=== PATIENT | male | born 1960 | race Caucasian/White ===

== ENCOUNTER 2018-03-23 14:05 | Inpatient (IN) ==
[2018-03-23] MEDS ORDERED: Naloxone 0.4 MG/ML INJ IVP PRN (17:48)
[2018-03-23] MEDS ORDERED: Albuterol 2.5 MG/3 ML NEBULIZER IH PRN (18:00)
[2018-03-23] MEDS ORDERED: *HR* Heparin 5,000 UNIT/ML VIAL IVP PRN ×2 (18:01)
[2018-03-23] MEDS ORDERED: *HR* Heparin 5,000 UNIT/ML VIAL IVP ONE (18:01)
[2018-03-23] MEDS ORDERED: Nitroglycerin 0.4 MG TAB.SUBL SL PRN (18:06)
--- NOTE | 2018-03-23 18:10 | Internal Med History&Physical ---
Date of Encounter: 03/23/18 Time of Encounter: 18:07 Internal Medicine - H&P: HPI Chief complaint: chest pain Admitted From: Home Plans for Post Hospital Care: Home History of present illness: Mr. Salgado is a 57 year old male past medical history of hypertension, hyperlipidemia, obstructive sleep apnea, coronary artery disease status post CABG in 2002 with subsequent PCI to RCA in 2010, status post pacemaker/AICD for ischemic cardiomyopathy, COPD came in with complain of chest pain which woke him up around 1:30 AM this morning. Patient took nitroglycerin tablets twice she did not relieve his pain after which he& Aleve as well as one more dose of nitroglycerin which did not help, which made him go to [facility]. Patient pain lasted till 4:30 am. 8/10 in intensity located in center of the chest, nonradiating, associated with some shortness of breath. Denies any nausea vomiting, dizziness, headache or abdominal or back pain. Denies any pedal edema or nighttime shortness of breath. Patient notably had a nuclear stress test which was abnormal on 05 October 2017 which showed "large partially reversible severe intensity perfusion defect in inferior, inferolateral and apical anteroseptal wall segment with reversibility in the basal to mid inferior and basal inferolateral segments, EF of 40% severely dilated left ventricle". Patient was supposed to get catheterization at [place] however he left [facility] medical advice as he did not like the hospital. He did not follow with any physician afterwards. He continues to smoke about 3-4 cigarettes a day and has been smoking since age 9. Has significant family history with father brother and sister all needing bypass. Patient was noted to have had [facility] elevated troponin of 0.018--> 0.043--> 0.064. His BNP was 528, bicarbonate 33 and hemoglobin of 19.7 at [facility]. Had a CT chest to rule out PE which was negative . Received Lasix, prednisone, DuoNeb times and oxygen. He was transferred except that it [facility] for further management. During interview patient is chest pain-free. Resting comfortably in bed. History was obtained from [facility] records and other transfer documents as well as interview with the patient. Past Med Surg Social Fam HX - Past Medical History Medical history: CHF, COPD, diabetes, hypertension Additional medical history: cva, right rotator cuff tear Psychiatric history: no psych history - Past Surgical History Surgical History: coronary bypass (CABG), pacemaker/AICD, AICD, pacemaker Additional surgical history: open heart, pacemaker/defib, 9 stents, knee operation, shoulder surgery (right) - Social History Smoking Status: Current some day smoker Smokeless Tobacco Status: No Alcohol use: none Drug use: marijuana - Family History Brother Hx Family Cardiac Disorders: Yes ([place], CABG) Hx Family Endocrine Disorder: Yes (DM) Sister Hx Family Cardiac Disorders: Yes (CABG, [place]) Hx Family Endocrine Disorder: Yes (DM) Father Living Status: Hx Family Cardiac Disorders: Yes (open heart surgery CHF) Hx Family Endocrine Disorder: Yes (diabetes HTN) Mother Living Status: Internal Medicine - H&P: Meds Albuterol Neb [Proventil Neb] 2.5 mg IH Q2H PRN #1 inhsol 06/04/15 [Rx] Aspirin [Adult Low Dose Aspirin EC] 81 mg PO DAILY 06/04/15 [History] Atorvastatin [Lipitor] 40 mg PO HS 06/04/15 [History] Carvedilol 12.5 mg PO BID 06/04/15 [History] Furosemide [Lasix] 20 mg PO TID 06/04/15 [History] Lisinopril [Zestril] 10 mg PO BID 06/04/15 [History] Paroxetine [Paxil] 20 mg PO DAILY 06/04/15 [History] OxyCODONE Immed Rel [Roxicodone 5 MG] 5 mg PO Q6HR PRN 7 Days #28 tablet [Rx] Isosorbide MONOnitrate [Isosorbide Mononitrate ER] 120 mg PO DAILY 08/17/17 [ History] Metformin HCl [Glucophage] 1,000 mg PO BID 08/17/17 [History] 3 Allergy/AdvReac Type Severity Reaction Status Date / Time No Known Allergies Allergy Verified 08/17/17 13:06 All Systems PM: A 10-system review of systems was performed and is negative for pertinent findings except as documented above in the HPI. - Constitutional Vitals: Temp Pulse Resp BP Pulse Ox 98.6 F 70 16 136/68 97 03/23/18 17:05 03/23/18 17:05 03/23/18 17:05 03/23/18 17:05 03/23/18 17:05 General appearance: Present: A&O X 3, no acute distress Exam: Constitutional: Vitals as noted. Conversant. No Apparent Distress. Well groomed. Obese. No obvious deformities. Eyes exam: Sclera white, conjunctiva clear, no lid lag, PEARLA. ENT exam: Grossly normal hearing. Nasophargeal and Oropharyngeal exam unremarkable. Moist mucus membranes. No JVD, carotid bruit, no cervical lymphadenopathy. no thyromegaly or mass. Respiratory exam: Clear to auscultation bilaterally. No accessory muscle use, rales, rhonchi or wheezes Cardiovascular exam: RRR, +S1, +S2. no murmur, gallop, rubs. No chest wall tenderness. Midline scar noted. GI/Abdominal exam: Soft, Obese, Non-tender, Non-distended, normal bowel sounds , soft, no peritoneal signs. no orgenomegaly or mass appreciated. no hernia. Musculoskeletal exam: full ROM, no atrophy or deformity noted. no edema or cyanosis, warm, pulses palpable and symmetrical in UE/LE. no calf tenderness. Neurological exam: AO X3, CN II-XII grossly intact, grossly normal motor and sensory exam. Normal muscle tone and reflexes. Skin exam: scabbed lesions noted on patients Rt leg and some on arms which patient said he got from his dog. No associated erythema or pain. Pych: Good insight and judgement. Intact memory. AOx3. Mood and affect Internal Med - H&P Results - Labs Labs: labs reviewed from [facility] which showed erythrocytosis and elevated Hb HCO of 33 and BNP of 528 - EKG Data -: EKG Interpreted by Myself (atrial paced complex, Rt bundle branch pattern, No ST depressioin/elevation) - Assessment and plan (1) NSTEMI (non-ST elevated myocardial infarction) Current Visit: Yes Status: Acute Assessment and plan: Chest pain and likely from NSTEMI - Patient high risk with multiple comorbidities. Status post CABG 2002 for 2 vessel disease, history of multiple stent with last Sent 2010 as per patient. - Discussed case with cardiology(Dr Tran). We will give patient aspirin 325, Plavix 600 loading and start heparin drip. Plan for catheterization or early tomorrow morning. - Continue home statin, Coreg and lisinopril. - prn nitroglycerin for pain (2) HTN (hypertension) Current Visit: Yes Status: Acute Assessment and plan: - Currently well controlled. Hemodynamically stable - Continue home Coreg, lisinopril. Qualifiers: Hypertension type: essential hypertension Qualified Code(s): I10 - Essential (primary) hypertension (3) Obstructive sleep apnea Current Visit: Yes Status: Acute Assessment and plan: - Patient is not using any CPAP/BiPAP machine at home - Likely has chronic CO2 retention. Currently well compensated. Does not want to use CPAP/BiPAP machine as he feels claustrophobic. (4) Tobacco abuse Current Visit: Yes Status: Acute Assessment and plan: - Counseled on cessation (5) Marijuana abuse Current Visit: Yes Status: Acute (6) CAD (coronary artery disease) Current Visit: No Status: Chronic Assessment and plan: As above Qualifiers: Coronary Disease-Associated Artery/Lesion type: [place] artery [place] vs. transplanted heart: [place] heart Associated angina: without angina Qualified Code(s): I25.10 - Atherosclerotic heart disease of [place] coronary artery without angina pectoris (7) COPD (chronic obstructive pulmonary disease) Current Visit: No Status: Chronic Assessment and plan: - Does not appear to have COPD exacerbation. - Continue albuterol as needed - Continue home prednisone 40 mg daily for now Qualifiers: COPD type: unspecified COPD Qualified Code(s): J44.9 - Chronic obstructive pulmonary disease, unspecified (8) Congestive heart failure Current Visit: No Status: Chronic Assessment and plan: - Last EF of 40% with severe dilated left ventricle - BNP 528. - Clinically appears euvolemic - Continue home Lasix, Coreg, Imdur and statin Qualifiers: Heart failure type: systolic Heart failure chronicity: chronic Qualified Code(s): I50.22 - Chronic systolic (congestive) heart failure (9) Obesity Current Visit: No Status: Chronic Qualifiers: Obesity type: due to excess calories Obesity classification: unspecified obesity classification Serious obesity comorbidity presence: without serious comorbidity Qualified Code(s): E66.09 - Other obesity due to excess calories (10) Type 2 diabetes mellitus Current Visit: No Status: Chronic Assessment and plan: - Hold home metformin - Levemir 5 at bedtime, sliding scale insulin and Accu-Cheks Qualifiers: Diabetes mellitus snf insulin use: without snf use Diabetes mellitus complication status: without complication Qualified Code(s): E11.9 - Type 2 diabetes mellitus without complications (11) DVT prophylaxis Current Visit: No Status: Acute Assessment and plan: On heparin drip - Time Spent With Patient Total time spent is greater than 50% in coordination of care (as documented) at patient's floor/unit and/or counseling patient:
[2018-03-23] MEDS ORDERED: Aspirin 81 MG TAB.CHEW PO ONE (18:14)
[2018-03-23] MEDS: Heparin 25,000 UNIT/500 ML D5W 25,000 UNIT/500 ML BAG IVC SCH (20:48)
[2018-03-23] MEDS: Insulin DETEMIR 100 UNIT/ML X5UNITS SQ SCH (22:04)
[2018-03-23] MEDS: Furosemide 20 MG TABLET PO SCH (22:04)
[2018-03-24 03:57] LABS: BUN/Creatinine Ratio 23 (6-26); Blood Urea Nitrogen 15 mg/dL (6-20); Calcium 9.3 mg/dL (8.6-10.3); Carbon Dioxide 30 mEq/L (23-29); Chloride 104 mEq/L (98-107); Glucose 151 mg/dL (70-105); Osmolality,Calculated 294 (280-300); Potassium 3.5 mEq/L (3.5-5.1); Sodium 140 mEq/L (136-145); eGFR For Non-African Americans > 60 (> 60)
[2018-03-24 04:31] LABS: Basophils % 0.3 %; Eosinophils # 0.1 K/mcL (0.0-0.6); Hemoglobin 18.4 g/dL (12.9-16.9); Immature Granulocytes % 0.1 % (0-4); Lymphocytes # 1.6 K/mcL (0.6-4.6); Lymphocytes % 23.3 %; Mean Corpuscular HGB Conc 32.9 g/dL (31.6-35.5); Mean Corpuscular Hemoglobin 31.2 pg (28.0-33.3); Mean Corpuscular Volume 94.7 fL (83.0-100.0); Mean Platelet Volume 10.9 fL (9.4-12.4); Monocytes # 0.7 K/mcL (0.0-1.3); Monocytes % 10.2 %; Neutrophils # 4.5 K/mcL (1.6-8.9); Platelet Count 129 K/mcL (140-400); Red Cell Distribution Width 15.9 % (11.5-14.5); Segmented Neutrophils % 65.1 %
[2018-03-24 04:33] LABS: Hematocrit 55.9 % (37.5-50.1)
[2018-03-24] MEDS: Isosorbide MONOnitrate (24 HR) 60 MG TAB.ER.24H PO SCH (09:02)
[2018-03-24] MEDS: Aspirin Enteric Coated 81 MG Tablet PO SCH (09:03)
[2018-03-24] MEDS: Furosemide 20 MG TABLET PO SCH ×3 (09:03→22:12)
--- NOTE | 2018-03-24 11:16 | Cardiology Consult Note ---
Date of Encounter: 03/24/18 Time of Encounter: 09:15 Assessment and Plan (1) NSTEMI (non-ST elevated myocardial infarction) Current Visit: Yes Status: Acute Per cardiology: -Troponins at [facility] 0.043, 0.064. -Admitted with chest pain, similar to previous NH symptoms. -No acute ischemic ECG changes noted. -Known previous CAD with CABG x2 vessel 2002. Report records last LHC with BRUNER to LAD patent, SVG to OM occluded. -Recent abnormal dobutamine stress test 09/2017 with large, partially reversible , severe intensity perfusion defect in inferior, inferolateral, and apical anteroseptal wall segements with reversibility in the basal to mid inferior and basla inferolateral segments. Patient was recommended for LHC at that time, however signed out AMA. -On heparin drip, asa, statin, bb, imdur. Was given plavix load yesterday. -With troponins, chest pain, and abnormal stress test, recommend LHC. Risks versus benefits of LHC explained to patient. Patient states understanding and agreeable to proceed. Of note, platelets today 129, within patient's baseline. Denies bleeding or blood loss. States previously tolerated dual anti-platelet therapy without issues. -TTE pending. (2) Ischemic cardiomyopathy Current Visit: Yes Status: Chronic Per cardiology: -Known ICM. Has AICD. -Last TTE 2014 [facility] showed improvement of LVEF to 45%, mildly dilated LV, mild diastolic dysfunction, severe bi-atrial enlargement. -Euvolemic on exam. -ON BB, lesa inhibitor, diuretic. -Will repeat TTE. (3) Tobacco abuse Current Visit: Yes Status: Chronic Per cardiology: -Known tobacco use. -Smoking cessation education reviewed with patient. Discussion w patient/family: The assessment and plan as outlined above was discussed with the patient who expressed understanding and agreement. All questions were answered. Thank you for involving us in the care of your patient. Please call with any questions. Discussed and reviewed with . History of Present Illness Consult date: 03/23/18 Requesting physician: Martita Engle Consult reason: elevated troponin, chest pain Chief complaint: chest pain History of present illness: Mr. Salgado is a 57 year old male with a relevant past medical history of CAD s/ p CABG and multiple PCIs, ICM s/p AICD with improvement of LVEF, COPD, HTN, HLD , DM, CVA, tobacco abuse who presented to [facility] with complaints of chest pain. Patient reports chest pain woke him up from sleeping. Patient states pain similar to previous angina. Reports chest pain worsens with exertion. Patient states he did take nitro at home without relief of symptoms. Patient denies current chest pain. Patient denies shortness of breath or fatigue. Patient continues to smoke. Past Med Surg Social Fam HX - Past Medical History Attestation: Yes The following information was validated with the patient. Source: patient, old records reviewed Medical history: cardiomyopathy, CHF, COPD, coronary artery disease, diabetes, hypertension Additional medical history: cva, right rotator cuff tear Psychiatric history: no psych history - Past Surgical History Surgical History: coronary bypass (CABG), pacemaker/AICD, AICD, pacemaker Additional surgical history: open heart, pacemaker/defib, 9 stents, knee operation, shoulder surgery (right) - Social History Smoking Status: Current some day smoker Smokeless Tobacco Status: No Alcohol use: none Drug use: marijuana - Family History Brother Hx Family Cardiac Disorders: Yes ([place], CABG) Hx Family Endocrine Disorder: Yes (DM) Sister Hx Family Cardiac Disorders: Yes (CABG, [place]) Hx Family Endocrine Disorder: Yes (DM) Father Living Status: Hx Family Cardiac Disorders: Yes (open heart surgery CHF) Hx Family Endocrine Disorder: Yes (diabetes HTN) Mother Living Status: Medications and Allergies Aspirin Enteric Coated [Aspirin EC] 81 mg PO DAILY 03/23/18 [History] Atorvastatin [Lipitor] 40 mg PO HS 03/23/18 [History] Carvedilol 12.5 mg PO BID 03/23/18 [History] Furosemide [Lasix] 20 mg PO TID 03/23/18 [History] Ipratropium/Albuterol Neb [Duoneb] 3 ml IH Q6HR 03/23/18 [History] Isosorbide MONOnitrate [Isosorbide Mononitrate ER] 120 mg PO DAILY 03/23/18 [ History] Lisinopril [Zestril] 20 mg PO DAILY 03/23/18 [History] Metformin HCl [Glucophage] 1,000 mg PO BID 03/23/18 [History] Paroxetine [Paxil] 30 mg PO DAILY 10/02/18 [History] 3 Allergy/AdvReac Type Severity Reaction Status Date / Time No Known Allergies Allergy Verified 08/17/17 13:06 All Systems Review: The remainder of the systems were reviewed and are negative - Cardiovascular Cardiovascular: as per HPI, chest pain at rest, chest pain with exertion Physical Examination Vital Signs, Last 4 Hours Temp Pulse Resp BP Pulse Ox 03/24/18 07:29 98.1 F 61 17 134/99 94 General: Conversant, No Apparent Distress HEENT: Atraumatic, Normocephaly, Mucus Membranes Moist Neck: No JVD, Normal carotid pulses Cardiac: Reg Rate and Rhythm, Normal S1 and S2, No Murmur Lungs: Normal Breath Sounds, No Wheeze, Rales, Rhonchi Neuro: Alert and responsive, No focal deficits noted Abdomen: Soft, Non-Tender Skin: No rashes noted on visualized skin Musculoskeletal: No Chest Wall Tenderness Extremities: No Clubbing, No Cyanosis, No Edema, Normal Pulses Results 03/24/18 02:46 03/24/18 02:46 Lab Results Active Medications Albuterol Sulfate (Proventil Neb) 2.5 mg IH Q2H PRN; Protocol PRN Reason: Shortness Of Breath/Wheezing Stop: 09/22/18 18:01 Aspirin (Aspirin Ec) 81 mg PO DAILY [facility] Stop: 09/23/18 09:01 Last Admin: 03/24/18 09:03 Dose: 81 mg Atorvastatin Calcium (Lipitor) 40 mg PO HS [facility] Stop: 09/22/18 21:01 Last Admin: 03/23/18 20:55 Dose: 40 mg Carvedilol (Coreg) 12.5 mg PO BIDWM [facility] Stop: 09/22/18 21:01 Last Admin: 03/24/18 09:03 Dose: 12.5 mg Furosemide (Lasix) 20 mg PO TIDDIURETIC [facility] Stop: 09/22/18 21:01 Last Admin: 03/24/18 09:03 Dose: 20 mg Heparin Sodium (Porcine) (Heparin) 4,000 unit 35 unit/kg (4000 unit) IVP Q6H PRN PRN Reason: SEE COMMENTS Stop: 09/22/18 18:02 Heparin Sodium (Porcine) (Heparin) 8,000 unit 70 unit/kg (8000 unit) IVP Q6HR PRN PRN Reason: SEE COMMENTS Stop: 09/22/18 18:02 Heparin Sodium/Dextrose (Heparin 25,000 Unit/500 Ml D5w) 25,000 unit in 500 mls @ 32.088 mls/hr IVC .[id number] [facility]; 14 UNIT/KG/HR PRN Reason: Protocol Stop: 09/22/18 18:16 Last Titration: 03/24/18 05:11 Dose: 10.95 unit/kg/hr, 25.118 mls/hr Insulin Detemir (Levemir) 5 unit SQ HS [facility] Stop: 09/22/18 21:01 Last Admin: 03/23/18 22:04 Dose: 5 unit Insulin Human Lispro (Humalog) 0 units SQ TIDAC [facility] PRN Reason: Protocol Stop: 09/23/18 07:31 Isosorbide Mononitrate (Imdur) 120 mg PO DAILY [facility] Stop: 09/23/18 09:01 Last Admin: 03/24/18 09:02 Dose: 120 mg Lisinopril (Zestril) 10 mg PO BID [facility] PRN Reason: Protocol Stop: 09/22/18 21:01 Last Admin: 03/24/18 09:03 Dose: 10 mg Naloxone HCl (Narcan) 0.4 mg IVP Q2MIN PRN PRN Reason: SEE COMMENTS Stop: 09/22/18 17:49 Nitroglycerin (Nitroglycerin) 0.4 mg SL Q5MIN PRN PRN Reason: Chest Pain Stop: 09/22/18 18:07 Laboratory Tests 06/04/15 12/10/16 11/10/17 00:47 12:07 09:46 Hgb Plt Count 110 L 153 140 Creatinine 03/24/18 03/24/18 02:46 02:46 Hgb 18.4 H Plt Count 129 L Creatinine 0.66 L - Imaging and Cardiology Chest Xray: report reviewed Stress Test: report reviewed Echo: pending, report reviewed Cardiac cath: pending - EKG Interpretation EKG results cardiology: personally reviewed (ECG with SR, RBBB, HR 66. Non- specific T wave abnormalities, similar to previous.), other (Telemetry reviewed with average HR previous 12 hours noted to be 70, SR. PVCs and PACs noted.) Consult Discharge Plan - Plan Referrals: Christopher Shirley MD [Primary Care Provider] -
--- NOTE | 2018-03-24 11:33 | Internal Med Progress Note ---
Hospitalist Progress Note - Encounter Date of Encounter: 03/24/18 Time of Encounter: 09:30 - Subjective Interval History: Patient seen and examined this morning. Admitted for chest pain from ACS. Currently without chest pain. Denies sob, dizzness or palpitation. No new complains. NPO. - Exam Vitals: Temp Pulse Resp BP Pulse Ox 98.1 F 61 17 134/99 94 03/24/18 07:29 03/24/18 07:29 03/24/18 07:29 03/24/18 07:29 03/24/18 07:29 Exam: Constitutional: Vitals as noted. Conversant. No Apparent Distress. Well groomed. Obese. No obvious deformities. Eyes exam: Sclera white, conjunctiva clear, no lid lag, PEARLA. ENT exam: Grossly normal hearing. Nasophargeal and Oropharyngeal exam unremarkable. Moist mucus membranes. No JVD, carotid bruit, no cervical lymphadenopathy. no thyromegaly or mass. Respiratory exam: Clear to auscultation bilaterally. No accessory muscle use, rales, rhonchi or wheezes Cardiovascular exam: RRR, +S1, +S2. no murmur, gallop, rubs. No chest wall tenderness. Midline scar noted. GI/Abdominal exam: Soft, Obese, Non-tender, Non-distended, normal bowel sounds , soft, no peritoneal signs. no orgenomegaly or mass appreciated. no hernia. Musculoskeletal exam: full ROM, no atrophy or deformity noted. no edema or cyanosis, warm, pulses palpable and symmetrical in UE/LE. no calf tenderness. Neurological exam: AO X3, CN II-XII grossly intact, grossly normal motor and sensory exam. Normal muscle tone and reflexes. Skin exam: scabbed lesions noted on patients Rt leg and some on arms which patient said he got from his dog. No associated erythema or pain. - Assessment and Plan (1) NSTEMI (non-ST elevated myocardial infarction) Current Visit: Yes Status: Acute (2) HTN (hypertension) Current Visit: Yes Status: Acute (3) Obstructive sleep apnea Current Visit: Yes Status: Acute (4) Tobacco abuse Current Visit: Yes Status: Acute (5) Marijuana abuse Current Visit: Yes Status: Acute (6) CAD (coronary artery disease) Current Visit: No Status: Chronic (7) COPD (chronic obstructive pulmonary disease) Current Visit: No Status: Chronic (8) Congestive heart failure Current Visit: No Status: Chronic (9) Obesity Current Visit: No Status: Chronic (10) Type 2 diabetes mellitus Current Visit: No Status: Chronic (11) DVT prophylaxis Current Visit: No Status: Acute - Summary of Assessment and Plan Summary of Assessment and Plan: NSTEMI - Patient high risk with multiple comorbidities. Adrián MARILYN risk score of 5. Status post CABG 2002 for 2 vessel disease, history of multiple stent with last Sent 2010 as per patient. - Discussed case with cardiology. s/p aspirin 325, Plavix 600 loading and started heparin drip. Plan for catheterization today. - Continue home statin, Coreg and lisinopril. - prn nitroglycerin for pain Congestive heart failure - Last EF of 40% with severe dilated left ventricle - BNP 528. - Clinically appears euvolemic - Continue home Lasix, Coreg, Imdur and statin HTN - Currently well controlled. Hemodynamically stable - Continue home Coreg, lisinopril. Obstructive sleep apnea - Patient is not using any CPAP/BiPAP machine at home - Likely has chronic CO2 retention. Currently well compensated. Does not want to use CPAP/BiPAP machine as he feels claustrophobic. Tobacco and Marijuana abuse - Counseled on cessation COPD - Does not appear to have COPD exacerbation. - Continue albuterol as needed - Continue home prednisone 40 mg daily for now - erythrocytosis likely from COPD and JESSICA. Type 2 diabetes mellitus - Hold home metformin - Levemir 5 at bedtime, sliding scale insulin and Accu-Cheks DVT prophylaxis - On heparin drip - Time Spent with Patient Total time spent is greater than 50% in coordination of care (as documented) at patient's floor/unit and/or counseling patient: Internal Medicine: Result - Labs CBC & Chem 7: 03/24/18 02:46 03/24/18 02:46 Labs: Short CBC 03/24/18 Range/Units 02:46 WBC 7.0 (4.3-11.1) K/mcL Hgb 18.4 H (12.9-16.9) g/dL Hct 55.9 H (37.5-50.1) % Plt Count 129 L (140-400) K/mcL Neutrophils # 4.5 (1.6-8.9) K/mcL BMP 03/24/18 02:46 Sodium 140 Potassium 3.5 Chloride 104 Carbon Dioxide 30 H BUN 15 Creatinine 0.66 L Glucose 151 H Calcium 9.3 Consult Discharge Plan - Plan Referrals: Christopher Shirley MD [Primary Care Provider] - (2) HTN (hypertension) Qualifiers: Qualified Code(s): I10 - Essential (primary) hypertension (6) CAD (coronary artery disease) Qualifiers: Qualified Code(s): I25.10 - Atherosclerotic heart disease of [place] coronary artery without angina pectoris (7) COPD (chronic obstructive pulmonary disease) Qualifiers: Qualified Code(s): J44.9 - Chronic obstructive pulmonary disease, unspecified (8) Congestive heart failure Qualifiers: Qualified Code(s): I50.22 - Chronic systolic (congestive) heart failure (9) Obesity Qualifiers: Qualified Code(s): E66.09 - Other obesity due to excess calories (10) Type 2 diabetes mellitus Qualifiers: Qualified Code(s): E11.9 - Type 2 diabetes mellitus without complications
[2018-03-24] MEDS: Insulin LISPRO 300 UNITS/3 ML VIAL SQ SCH ×2 (12:26→17:36)
[2018-03-24] MEDS ORDERED: 0.9 % Sodium Chloride 1,000 ML ONE ×2 (14:55→15:24)
[2018-03-24] MEDS ORDERED: Heparin 1,000 UNITS/500 mL 500 ML ONE (14:56)
[2018-03-24] MEDS ORDERED: *HR* Heparin 10,000 UNIT/10 ML VIAL ONE (14:56)
[2018-03-24] MEDS ORDERED: Nitroglycerin 1,000 MCG/10 ML VIAL IV ONE (14:56)
[2018-03-24] MEDS ORDERED: ISOVUE-370 200 ML INFUS..BTL IV ONE ×2 (14:56→16:09)
[2018-03-24] MEDS ORDERED: *HR* Midazolam HCl 2 MG/2 ML VIAL ONE ×2 (15:25→16:00)
[2018-03-24] MEDS ORDERED: *HR* FentaNYL (PF) 100 MCG/2 ML VIAL ONE ×2 (15:25→15:53)
[2018-03-24] MEDS ORDERED: Tirofiban 12.5 MG/250ML 12.5 MG/250 ML BAG ONE (16:05)
[2018-03-24] MEDS ORDERED: *HR* Labetalol 100 MG/20 ML MDV ONE (16:20)
--- NOTE | 2018-03-24 17:03 | Invasive Diagnostic Lab Proc ---
Name: Art Salgado Date of Study: 03/24/2018 Date: 1960 Ht: 68.1in Medical Record#: [id number] Age: 57 Wt: 251.33lb Gender: Male BSA: 2.25 Order #: [id number] BMI: 38.09 Physicians Procedure Physician: Panchito Ward MD Referring MD: Referring MD: Staff Name Position Time In Sites, Sara RT (R) Monitor 03:29 PM Siomara Kumar RT (R) Scrub 03:29 PM Alexander Hamm RN Pre Parole Counseling Aide 03:29 PM Indications Indication Unstable Angina Procedures Performed Procedure L HRT ART/GRFT ANGIO PRQ CARDIAC ANGIOPLAST 1 ART Pre-Procedure Checklist Informed consent is complete signed and on chart. H&P is on chart. ID band is on and ID verified with patient. Patient NPO for procedure The procedure was described for the patient and questions were answered. Blood Pressure: 150/100 ECG is on chart. Rhythm: NSR Plan of Care Patient will tolerate the procedure without complications. Adequate level of comfort will be maintained. Hemodynamics will remain stable Patient will recover from procedure without complications. Respiratory function will be maintained. Cardiac rhythm will remain stable. Patient temperature will be maintained. Patient and/or family have verbalized understanding of the procedure. Patient Education Chief Complaint/Reason for Test: Cardiac Cath Developmental Category: Adult (18-64 years) Developmentally Appropriate for Age: Yes Learning Barriers: None Education Needs: Procedure Education Method: Verbal Information Taught: Cardiac Cath Educational Evaluation: Able to repeat information Intravenous Access Time IV Size Location DC'd Fluid/Drip Rate Units RN 03:12 PM 20g 1 /" Patent On Arrival Lt Antecubital 0.9NaCl 25 ml/hr Allergies No Known Allergies Vital Signs Time BP (mmHg) HR (bpm) O2 Sat. RR (bpm) LOC 03:31 PM / % 5 = Fully awake and oriented or at pre-proc level 03:31 PM / % 5 = Fully awake and oriented or at pre-proc level 03:48 PM / % 4 = Oriented but drowsy 04:03 PM / % 4 = Oriented but drowsy 04:06 PM 173 / 117 86 92 % 36 04:11 PM 166 / 113 84 92 % 17 04:16 PM 180 / 116 81 92 % 6 04:21 PM 170 / 111 82 91 % 22 04:26 PM 174 / 110 73 90 % 16 04:31 PM 171 / 114 74 88 % 23 04:36 PM 168 / 113 75 % 25 03:26 PM 140 / 94 71 91 % 23 03:31 PM 150 / 100 71 92 % 9 03:36 PM 149 / 90 71 90 % 18 03:41 PM 154 / 94 72 91 % 15 03:46 PM 154 / 95 65 91 % 12 03:51 PM 150 / 96 67 91 % 10 03:56 PM 164 / 122 92 94 % 25 04:01 PM 168 / 117 89 93 % 22 Procedural Medications Time Medication Dose Units Method Given By 03:31 PM Oxygen 2 L/min nasal cannula Alexander Hamm RN 03:31 PM Versed 1 mg Intravenous Alexander Hamm RN 03:31 PM Fentanyl 50 mcg Intravenous Alexander Hamm RN 03:49 PM Versed 1 mg Intravenous Alexander Hamm RN 03:49 PM Fentanyl 25 mcg Intravenous Alexander Hamm RN 03:49 PM Lidocaine 2% 20 ml Subcutaneous Panchito Ward MD 03:53 PM Fentanyl 50 mcg Intravenous Alexander Hamm RN 04:06 PM Aggrastat Bolus: 58 ml Intravenous Alexander Hamm RN 04:07 PM Aggrastat 12.5mg/250ml 21 ml Intravenous Alexander Hamm RN 04:07 PM Heparin 5000 units Intravenous Alexander Hamm RN 04:17 PM Nitroglycerin 100 mcg Intracoronary Jonathon Ward MD 04:19 PM Nitroglycerin 200 mcg Intracoronary Jonathon Ward MD 04:21 PM Labetolol 10 mg Intravenous Alexander Hamm RN 04:27 PM Lidocaine 2% 10 ml Subcutaneous Panchito Ward MD 04:33 PM Plavix 150 mg Orally Alexander Hamm RN ASA Classification: CLASS II- Mild systemic disease (i.e. well-controlled diabetes, hypertension, asthma, cigarette smoking) Kristie Score Preprocedure Postprocedure Activity 2- Moves 4 extremities sustained head lift Activity Circulation 2- SBP +/= 20 points of pre-anesthetic level Circulation Consciousness 2- Awake and alert oriented x 3 Consciousness O2 Saturation 2- Able to maintain O2 satruation of 92% on room air O2 Saturation Respiratory 2- Able to deep breathe and cough well Respiratory Total Score 10 Total Score Contrast Agent: Isovue Diagnostic Contrast: 160 ml Total Contrast: 160 ml Fluoro Dose: 01786 mGy Activated Clotting Time Time Seconds to Clot 04:06 PM 128 04:32 PM 302 Procedure Log Time Note Enter By 03:25 PM CathStat 03:25 PM Vitals capture started with the following parameters, Patient=Adult, Interval=5 min, Initial Pizlglpe=411 mmHg, Deflation Rate=5 mmHg, Cuff placed on Right Arm 03:26 PM HR=71 bpm, HLQI=173/94 mmhg, SpO2=91 %, Resp=23 B/min 03:28 PM Recorded ECG: HR=66 Condition=Condition 1 03:29 PM Pt arrived to laboratory mechanic helper 2 at 15:29 [email or web address] 03:29 PM Sara Campuzano RT (R) Position: Monitor Time in: 15:29 [email or web address] 03:29 PM Siomara Kumar RT (R) Position: Scrub Time in: 15:29 [email or web address] 03:29 PM Alexander Hamm RN Position: Pre Parole Counseling Aide Time in: 15:29 [email or web address] 03:29 PM Patient charges- Angio tray pack, Navilyst 3mm J, Pulse Oximetry and ACIST tubing and transducer [email or web address] 03:29 PM Case Delayed No [email or web address] 03:29 PM Physician arrived 15:29 [email or web address] 03:30 PM Meet and greet completed [email or web address] 03:30 PM Sign in performed according to hospital policy. Informed consent was obtained. [email or web address] 03:30 PM Procedure start 15:30 [email or web address] 03:30 PM Hair removed from procedure site in holding area using clippers. Bilateral groin prepped with Chloraprep by Sara Campuzano (R), then patient was draped. Skin intact. [email or web address] 03:31 PM HR=71 bpm, GIMS=260/100 mmhg, SpO2=92.0 %, Resp=9 B/min 03:31 PM Time: 15:31 Oxygen on at 2 L/min per nasal cannula by Alexander Hamm RN 03:31 PM Time: 15:31 Versed 1 mg Intravenous Given by Alexander Hamm RN ts 03:31 PM Time: 15:31 Fentanyl 50 mcg Intravenous Given by Alexander Hamm RN [email or web address] 03:31 PM Time: 15:31 Patient comfortable and pain free: Yes [email or web address] 03:31 PM Time: 15:31LOC: 5 = Fully awake and oriented or at pre-proc level tsites 03:31 PM Clinical Presentation: No symptoms, no angina tsites 03:36 PM HR=71 bpm, HFPN=689/90 mmhg, SpO2=90.0 %, Resp=18 B/min 03:41 PM HR=72 bpm, HRRL=207/94 mmhg, SpO2=91.0 %, Resp=15 B/min 03:46 PM HR=65 bpm, YJCC=376/95 mmhg, SpO2=91 %, Resp=12 B/min 03:48 PM Time: 15:31LOC: 5 = Fully awake and oriented or at pre-proc level tsites 03:48 PM Time: 15:31 Patient comfortable and pain free: Yes tsites 03:49 PM Time out was performed according to hospital policy. Conscious sedation and anesthesia was achieved (see medication log with in this report above) tsites 03:49 PM Time: 15:49 Versed 1 mg Intravenous Given by Alexander Hamm RN tsites 03:49 PM Time: 15:49 Fentanyl 25 mcg Intravenous Given by Alexander Hamm RN tsites 03:49 PM Time: 15:49 20 ml Lidocaine 2% to right groin Subcutaneous Given by Panchito Ward MD tsites 03:51 PM HR=67 bpm, JPSG=857/96 mmhg, SpO2=91.0 %, Resp=10 B/min 03:51 PM Micro-Introducer Kit utilized for sheath placement tsites 03:52 PM Access obtained by percutaneous puncture. 4Fr 10cm Terumo Horace sheath placed in right Femoral artery. [id number] tsites 03:52 PM 2cc of contrast injected tsites 03:53 PM Sheath exchanged for a 6 Fr 11 cm Terumo Horace sheath [id number] tsites 03:53 PM Time: 15:53 Fentanyl 50 mcg Intravenous Given by Alexander Hamm RN tsites 03:54 PM 5Fr FR 4 catheter inserted over the wire DNC tsites 03:55 PM Recorded Pressure: Ao, HR=92, Condition=Condition 1 (Aorta) Ao 156/125/140 03:55 PM RCA angiography performed in multiple views. tsites 03:56 PM repositioning catheter tsites 03:56 PM HR=92 bpm, CSZW=916/122 mmhg, SpO2=94 %, Resp=25 B/min 03:58 PM Left BALJEET to the LAD angio performed in multiple views. tsites 04:00 PM wire reinserted catheter removed tsites 04:00 PM 5Fr FL 4 catheter inserted over the wire DN tsites 04:00 PM LCA angiography performed in multiple views. tsites 04:01 PM HR=89 bpm, UYCM=479/117 mmhg, SpO2=93 %, Resp=22 B/min 04:01 PM Recorded Pressure: Ao, HR=91, Condition=Condition 1 (Aorta) Ao 122/-21/24 04:02 PM wire reinserted catheter removed tsites 04:02 PM 5Fr Pigtail catheter inserted over the wire DN tsites 04:03 PM Pressure channel 1 zero failed. 04:03 PM Recorded Pressure: LV, HR=82, Condition=Condition 1 (Left Ventricle) LV 150/35/36 04:03 PM Time: 15:48 Patient comfortable and pain free: Yes tsites 04:03 PM Time: 15:48LOC: 4 = Oriented but drowsy tsites 04:03 PM Catheter crossed the aortic valve and was selectively placed in the left ventricle. Pressures recorded on pullback for left heart catheterization. tsites 04:04 PM Bolus angiogram of left Ventricle complete: 10 ml/sec for a total of 20 mls tsites 04:04 PM Recorded Pressure: LV, Ao, HR=90, Condition=Condition 1 (Left Ventricle) LV 139/48/52, (Aorta) Ao 151/121/136 04:04 PM wire reinserted catheter removed tsites 04:05 PM Lesion found in Proximal RCA. Pre Stenosis: 60 Pre MARILYN Flow: 3: Complete and Brisk Flow/Perfusion tsites 04:05 PM Right Coronary, Right Posterior Descending Arteries with Right Posterolateral and Acute Marginal branches with 60 % stenosis. If graft is supplying this area, 0 % stenosis tsites 04:05 PM Coronary Dominance: right tsites 04:05 PM PCI Status Urgent tsites 04:05 PM PCI lesion in Proximal RCA. tsites 04:05 PM 6Fr JR 4 Runway guide catheter was used to cannulate the PCI vessel successfully. reused? No tsites 04:05 PM Inflation device was opened. tsites 04:06 PM Pressure channel 1 zero failed. 04:06 PM .014 [employer] [place] 182cm guide wire across target lesion- successful. reused? No tsites 04:06 PM HR=86 bpm, CNWH=080/117 mmhg, SpO2=92.0 %, Resp=36 B/min 04:06 PM Act drawn tsites 04:06 PM At 16:06 the ACT was 128 seconds. tsites 04:07 PM Time: 16:06 Aggrastat Bolus: 58 ml Intravenous Given by Alexander Hamm RN Pack pump tsites 04:07 PM Time: 16:07 Aggrastat 12.5mg/250ml 21 ml Intravenous Given by Alexander Hamm RN Pack pump tsites 04:07 PM Time: 16:07 Heparin 5000 units Intravenous Given by Alexander Hamm RN tsites 04:09 PM 2.5 mm x 20mm NC Trek Rx balloon across target lesion- successful. reused? No tsites 04:11 PM Balloon inflated @ 16 shahla for 12 seconds tsites 04:11 PM Balloon inflated @ 16 shahla for 5 seconds tsites 04:11 PM HR=84 bpm, OWLL=011/113 mmhg, SpO2=92.0 %, Resp=17 B/min 04:11 PM Balloon inflated @ 16 shahla for 6 seconds tsites 04:13 PM 3.5 mm x 20mm NC Emerge balloon across target lesion- successful. reused? No tsites 04:13 PM Balloon catheter removed intact. tsites 04:13 PM 3.5 mm x 20mm NC Emerge balloon across target lesion- successful. reused? No tsites 04:14 PM Balloon inflated @ 18 shahla for 11 seconds tsites 04:15 PM Balloon inflated @ 12 shahla for 15 seconds tsites 04:15 PM Balloon inflated @ 20 shahla for 14 seconds tsites 04:16 PM HR=81 bpm, MJKD=934/116 mmhg, SpO2=92.0 %, Resp=6 B/min 04:16 PM Balloon inflated @ 20 shahla for 14 seconds tsites 04:16 PM Balloon inflated @ 20 shahla for 5 seconds tsites 04:17 PM Time: 16:17 Nitroglycerin 100 mcg Intracoronary Given by Jonathon Ward MD tsites 04:19 PM Time: 16:03LOC: 4 = Oriented but drowsy tsites 04:19 PM Time: 16:03 Patient comfortable and pain free: Yes tsites 04:19 PM Balloon catheter removed intact. tsites 04:19 PM Guide wire removed intact. tsites 04:20 PM Time: 16:19 Nitroglycerin 200 mcg Intracoronary Given by Jonathon Ward MD tsites 04:21 PM HR=82 bpm, WXOA=447/111 mmhg, SpO2=91.0 %, Resp=22 B/min 04:21 PM Time: 16:21 Labetolol 10 mg Intravenous Given by Alexander Hamm RN tsites 04:22 PM Bolus angiogram of right Femoral complete: 2 ml/sec for a total of 4 mls tsites 04:26 PM HR=73 bpm, ATWH=910/110 mmhg, SpO2=90 %, Resp=16 B/min 04:27 PM Time: 16:27 10 ml Lidocaine 2% to right groin Subcutaneous Given by Panchito Ward MD tsites 04:30 PM Procedure completed at 16:30 03/24/2018 tsites 04:30 PM Did you address MARILYN flow and Dominance? Yes tsites 04:31 PM Sign out completed: Radiation Dose 1488 mGy, 52350 cGy/cm2 Fluoro Time: 8.9 Isovue 370 - 200ml contrast 160 ml given by Panchito Ward MD. Complications: None. The patient was discharged out of the laboratory mechanic helper in stable condition. Cardiac Rehab Consult needed: NoConfirmed administered medications: Yes tsites 04:31 PM Isovue 370 - 200ml,2 Bottle(s) used. tsites 04:31 PM Sheath left in place to be pulled on floor/holding areaV+Pad tsites 04:31 PM Estimated Blood Loss: minimal tsites 04:31 PM Post ECG NSR tsites 04:31 PM HR=74 bpm, MYPD=744/114 mmhg, SpO2=88 %, Resp=23 B/min 04:31 PM Post Blood Pressure 171/114 tsites 04:31 PM 16:31 Post Pulses Bilateral DP & PT 1+ tsites 04:31 PM Information taught Cardiac Cath and PCI tsites 04:31 PM Education needs Procedure, Plan of Care, and Responsibilities of Patient in Care tsites 04:31 PM Learning barriers :None tsites 04:31 PM Education Methods Verbal tsites 04:31 PM Education evaluation Able to repeat information tsites 04:32 PM Site status No bleeding/hematoma - Rt Groin as reported by Siomara Kumar RT (R) at 16:31 tsites 04:32 PM Opsite applied tsites 04:32 PM act 302 tsites 04:33 PM Patient out of room: 16:33 tsites 04:33 PM Time: 16:33 Plavix 150 mg Orally Given by Alexander Hamm RN tsites 04:36 PM HR=75 bpm, VWTV=808/113 mmhg, Resp=25 B/min 04:43 PM Report given to [email or web address] MONTENEGRO Pt taken to 2N Room #6. 16:43 tsites 04:48 PM Delay to floor No tsites 04:48 PM Patient out of room: 16:48 tsites 04:49 PM Family placed in consult room. tsites 04:50 PM Lesion found in Proximal Circumflex. Pre Stenosis: 40 Pre MARILYN Flow: tsites 04:50 PM Lesion found in Proximal LAD. Pre Stenosis: 100 Pre MARILYN Flow: tsites 04:51 PM Lesion found in Mid RCA. Pre Stenosis: 60 Pre MARILYN Flow: tsites 04:51 PM Proximal Left Anterior Descending Coronary Artery with 100% stenosis. If graft is supplying this territory, 0 % stenosis. tsites 04:51 PM Right Coronary, Right Posterior Descending Arteries with Right Posterolateral and Acute Marginal branches with 60 % stenosis. If graft is supplying this area, 0 % stenosis tsites 04:51 PM Circumflex, Obtuse Marginal, Left Posterior Descending, and Left Posterolateral Coronary Arteries with 40 % stenosis. If graft is supplying this area, 0 % stenosis tsites Complications Complication None Hemodynamics Pressures Site Systolic/A Wave Diastolic/V Wave Mean AO 156 125 140 AO 122 -21 24 LV 150 35 36 LV 139 48 52 AO 151 121 136 Post Procedure Information Blood Pressure: 171/114 mmHg Rhythm: NSR Post procedural instructions were given Closure Device Time Device Success/Fail 03/24/2018 4:32:00 PM Manual Compression Site Checks Time Location Status Staff Sheath In? Note 04:31 PM Rt Groin No bleeding/hematoma Siomara Kumar RT (R) Pulses Time Site Pre-Procedure Post-Procedure Note Bilateral PT 1+ Rt DP 1+ Lt DP 2+ 4:31:00 PM Bilateral DP & PT 1+ Updated by Sara Campuzano RT (R) on 03/24/2018 4:56:33 PM Sara Campuzano RT electronically signed on 03/24/2018 4:57:03 PM with status of Final
[2018-03-24] MEDS ORDERED: Tirofiban 12.5 MG/250ML 12.5 MG/250 ML BAG IVC SCH (17:15)
[2018-03-24] MEDS: Heparin 25,000 UNIT/500 ML D5W 25,000 UNIT/500 ML BAG IVC SCH (17:37)
[2018-03-24] MEDS ORDERED: Perflutren Lipid Microsphere 1.3 ML in 0.9 % Sodium Chloride 8.7 ML IVP ONE (19:58)
[2018-03-24] MEDS ORDERED: OXYCODONE Oral CONC 10 MG/0.5 ML ORAL.SYG SL ONE (20:36)
[2018-03-24] MEDS ORDERED: *HR* Atropine Sulfate 1 MG/10 ML SYRINGE ONE (21:14)
[2018-03-24] MEDS: Insulin DETEMIR 100 UNIT/ML X5UNITS SQ SCH (22:12)
[2018-03-25 04:37] LABS: Basophils % 0.5 %; Eosinophils # 0.1 K/mcL (0.0-0.6); Eosinophils % 1.7 %; Hematocrit 54.5 % (37.5-50.1); Hemoglobin 18.1 g/dL (12.9-16.9); Immature Granulocytes % 0.3 % (0-4); Lymphocytes # 1.7 K/mcL (0.6-4.6); Lymphocytes % 28.8 %; Mean Corpuscular HGB Conc 33.2 g/dL (31.6-35.5); Mean Corpuscular Hemoglobin 31.4 pg (28.0-33.3); Mean Corpuscular Volume 94.5 fL (83.0-100.0); Mean Platelet Volume 10.4 fL (9.4-12.4); Monocytes # 0.5 K/mcL (0.0-1.3); Monocytes % 8.2 %; Neutrophils # 3.5 K/mcL (1.6-8.9); Platelet Count 112 K/mcL (140-400); Red Blood Count 5.77 M/mcL (4.19-5.50); Segmented Neutrophils % 60.5 %
[2018-03-25 04:56] LABS: BUN/Creatinine Ratio 20 (6-26); Blood Urea Nitrogen 13 mg/dL (6-20); Calcium 9.1 mg/dL (8.6-10.3); Carbon Dioxide 25 mEq/L (23-29); Chloride 106 mEq/L (98-107); Glucose 81 mg/dL (70-105); Osmolality,Calculated 289 (280-300); Potassium 3.8 mEq/L (3.5-5.1); Sodium 140 mEq/L (136-145); eGFR For Non-African Americans > 60 (> 60)
[2018-03-25] MEDS: Isosorbide MONOnitrate (24 HR) 60 MG TAB.ER.24H PO SCH (08:08)
[2018-03-25] MEDS: Insulin LISPRO 300 UNITS/3 ML VIAL SQ SCH ×2 (08:09→11:49)
[2018-03-25] MEDS: Aspirin Enteric Coated 81 MG Tablet PO SCH (08:09)
[2018-03-25] MEDS: Furosemide 20 MG TABLET PO SCH ×2 (08:09→11:01)
--- NOTE | 2018-03-25 10:09 | Cardiology Progress Note ---
Date of Encounter: 03/25/18 Time of Encounter: 09:30 Assessment and Plan (1) NSTEMI (non-ST elevated myocardial infarction) Current Visit: Yes Status: Acute Per cardiology: -Troponins at [place] 0.043, 0.064. -Admitted with chest pain, similar to previous AL symptoms. -No acute ischemic ECG changes noted. -Known previous CAD with CABG x2 vessel 2002. Report records last [facility] with BRUNER to LAD patent, SVG to OM occluded. -Recent abnormal dobutamine stress test 09/2017 with large, partially reversible , severe intensity perfusion defect in inferior, inferolateral, and apical anteroseptal wall segements with reversibility in the basal to mid inferior and basla inferolateral segments. -s -s/p LHC on 03/24/18 with successful PTCA of pRCA; otherwise 1 of 2 patent bypass grafts, patent pRPDA sent and occluded RPAV stent. EF 25% -No issues overnight, no chest pain. Right groin cath site stable. -Add plavix, continue statin, asa, ACEi, and BB. -Recommend follow-up with Dr. Galicia (primary [facility] General [facility]) in 1-2 weeks. -Cardiology will sign off. (2) Ischemic cardiomyopathy Current Visit: Yes Status: Chronic Per cardiology: -Known ICM. Has AICD. -Last TTE 2014 [facility] showed improvement of LVEF to 45%, mildly dilated LV, mild diastolic dysfunction, severe bi-atrial enlargement. -Euvolemic on exam. -ON BB, lesa inhibitor, diuretic. (3) Tobacco abuse Current Visit: Yes Status: Chronic Per cardiology: -Known tobacco use. -Smoking cessation education reviewed with patient. Discussion w patient/family: The assessment and plan as outlined above was discussed with the patient and/or family members who expressed understanding and agreement. All questions were answered. Thank you for involving us in the care of your patient. Please call with any questions. The patient will be discussed and reviewed with Dr. Tran; Cardiology will sign- off. Again, recommend close outpatient follow-up with patient's primary [facility], Dr. Galicia in 1-2 weeks. Subjective Principal diagnosis: NSTEMI, CP Interval history: Seen and examined. No events noted overnight. No chest pain reported. No issues with right groin cath site. Objective Vital Signs, Last 4 Hours Temp Pulse Resp BP Pulse Ox 03/25/18 09:00 90 10/04/18 07:28 98.1 F 68 18 143/92 91 General: Conversant, No Apparent Distress, Other (obese, erik appearing) HEENT: Atraumatic, Normocephaly, Mucus Membranes Moist Cardiac: Reg Rate and Rhythm, Normal S1 and S2 Lungs: Normal Breath Sounds Neuro: Alert and responsive Abdomen: Soft Skin: No rashes noted on visualized skin Musculoskeletal: No Chest Wall Tenderness Extremities: Other (mild BLE edema) Results 03/25/18 04:18 03/25/18 04:18 Lab Results 03/25/18 03/25/18 04:18 04:18 WBC 5.8 Hgb 18.1 H Hct 54.5 H Plt Count 112 L Sodium 140 Potassium 3.8 Chloride 106 Carbon Dioxide 25 BUN 13 Creatinine 0.64 L Glucose 81 Calcium 9.1 Active Medications Albuterol Sulfate (Proventil Neb) 2.5 mg IH Q2H PRN; Protocol PRN Reason: Shortness Of Breath/Wheezing Stop: 09/22/18 18:01 Aspirin (Aspirin Ec) 81 mg PO DAILY [facility] Stop: 09/23/18 09:01 Last Admin: 03/25/18 08:09 Dose: 81 mg Atorvastatin Calcium (Lipitor) 40 mg PO HS [facility] Stop: 09/22/18 21:01 Last Admin: 03/24/18 22:11 Dose: 40 mg Carvedilol (Coreg) 12.5 mg PO BIDWM [facility] Stop: 09/22/18 21:01 Last Admin: 03/25/18 08:08 Dose: 12.5 mg Carvedilol (Coreg) 12.5 mg PO ONCE ONE PRN Reason: Protocol Stop: 03/25/18 19:42 Clopidogrel Bisulfate (Plavix) 75 mg PO DAILY [facility] Stop: 09/24/18 10:01 Last Admin: 03/25/18 11:01 Dose: 75 mg Furosemide (Lasix) 20 mg PO TIDDIURETIC [facility] Stop: 09/22/18 21:01 Last Admin: 03/25/18 11:01 Dose: 20 mg Insulin Detemir (Levemir) 5 unit SQ HS [facility] Stop: 09/22/18 21:01 Last Admin: 03/24/18 22:12 Dose: 5 unit Insulin Human Lispro (Humalog) 0 units SQ TIDAC [facility] PRN Reason: Protocol Stop: 09/23/18 07:31 Last Admin: 03/25/18 08:09 Dose: Not Given Isosorbide Mononitrate (Imdur) 120 mg PO DAILY [facility] Stop: 09/23/18 09:01 Last Admin: 03/25/18 08:08 Dose: 120 mg Lisinopril (Zestril) 10 mg PO BID [facility] PRN Reason: Protocol Stop: 09/22/18 21:01 Last Admin: 03/25/18 08:09 Dose: 10 mg Naloxone HCl (Narcan) 0.4 mg IVP Q2MIN PRN PRN Reason: SEE COMMENTS Stop: 09/22/18 17:49 Nitroglycerin (Nitroglycerin) 0.4 mg SL Q5MIN PRN PRN Reason: Chest Pain Stop: 09/22/18 18:07 Paroxetine HCl (Paxil) 30 mg PO HS [facility] PRN Reason: Protocol Stop: 09/23/18 22:46 Last Admin: 03/24/18 23:01 Dose: 30 mg - Imaging and Cardiology Echo: pending Cardiac cath: report reviewed Other Results: 12 hour tele: avg HR=69 SR. No events noted. - EKG Interpretation EKG results cardiology: personally reviewed Consult Discharge Plan - Plan Referrals: Christopher Shirley MD [Primary Care Provider] -
[2018-03-25 11:36] VITALS: BP 148/96
--- NOTE | 2018-03-25 13:03 | Discharge Summary ---
Orders not resulted at time of discharge: Pending orders 03/25/18 07:00 ECG 12 lead ECG [ECG] Routine Date of Encounter: 03/25/18 Time of Encounter: 11:46 - Discharge Diagnosis (1) NSTEMI (non-ST elevated myocardial infarction) Priority: Primary Status: Acute (2) HTN (hypertension) Priority: Secondary Status: Acute Qualifiers: Hypertension type: essential hypertension Qualified Code(s): I10 - Essential (primary) hypertension (3) Obstructive sleep apnea Priority: Secondary Status: Acute (4) Tobacco abuse Priority: Secondary Status: Chronic (5) Marijuana abuse Priority: Secondary Status: Acute (6) CAD (coronary artery disease) Priority: Primary Status: Chronic Qualifiers: Coronary Disease-Associated Artery/Lesion type: [place] artery [place] vs. transplanted heart: [place] heart Associated angina: without angina Qualified Code(s): I25.10 - Atherosclerotic heart disease of [place] coronary artery without angina pectoris (7) COPD (chronic obstructive pulmonary disease) Priority: Secondary Status: Chronic Qualifiers: COPD type: unspecified COPD Qualified Code(s): J44.9 - Chronic obstructive pulmonary disease, unspecified (8) Congestive heart failure Priority: Secondary Status: Chronic Qualifiers: Heart failure type: systolic Heart failure chronicity: chronic Qualified Code(s): I50.22 - Chronic systolic (congestive) heart failure (9) Obesity Priority: Secondary Status: Chronic Qualifiers: Obesity type: due to excess calories Obesity classification: unspecified obesity classification Serious obesity comorbidity presence: without serious comorbidity Qualified Code(s): E66.09 - Other obesity due to excess calories (10) Type 2 diabetes mellitus Priority: Secondary Status: Chronic Qualifiers: Diabetes mellitus termite inspector insulin use: without alf use Diabetes mellitus complication status: without complication Qualified Code(s): E11.9 - Type 2 diabetes mellitus without complications (11) DVT prophylaxis Priority: Secondary Status: Acute Hospital course: Mr. Salgado is a 57 year old male with past medical history of HTN, HLD, JESSICA, CAD status post CABG and stents came in with chest pain. Patient was treated for an STEMI and started on heparin drip as well as dual antiplatelet therapy. Patient underwent left heart catheterization on 03/24/18 with successful PTCA of pRCA. 1 of 2 patent bypass grafts, patent pRPDA sent and occluded RPAV stent. Patient was started on Plavix along with statin, aspirin, lesa inhibitors and beta blockers. Patient was stable to be discharged to follow with his own cardiology Dr. Galicia in 1-2 weeks. Patient EF was 25% and already has AICD placed. Discharge discussed with: patient, nurse, social work, case management, customer relations consultant - Time Spent with Patient Total time spent providing and/or coordinating discharge services: Greater than 30 minutes - Discharge Medications Prescriptions: Clopidogrel [Plavix] 75 mg PO DAILY 30 Days #30 tablet Home Medications: Aspirin Enteric Coated [Aspirin EC] 81 mg PO DAILY 03/23/18 [History] Atorvastatin [Lipitor] 40 mg PO HS 03/23/18 [History] Carvedilol 12.5 mg PO BID 03/23/18 [History] Furosemide [Lasix] 20 mg PO TID 03/23/18 [History] Ipratropium/Albuterol Neb [Duoneb] 3 ml IH Q6HR 03/23/18 [History] Isosorbide MONOnitrate [Isosorbide Mononitrate ER] 120 mg PO DAILY 03/23/18 [ History] Lisinopril [Zestril] 20 mg PO DAILY 03/23/18 [History] Metformin HCl [Glucophage] 1,000 mg PO BID 03/23/18 [History] Paroxetine [Paxil] 30 mg PO DAILY 03/23/18 [History] Albuterol Neb [Proventil Neb] 2.5 mg IH Q2H PRN inhsol 03/25/18 [Rx] Clopidogrel [Plavix] 75 mg PO DAILY 30 Days #30 tablet 03/25/18 [Rx] Allergies/Adverse Reactions: 3 Allergy/AdvReac Type Severity Reaction Status Date / Time No Known Allergies Allergy Verified 08/17/17 13:06 Date of admission: 03/23/18 16:43 Primary care physician: Christopher Shirley MD Consults: 03/23/18 17:59 Consult to Cardiology [CONS] Routine Comment: Consulting Provider: [facility] [place] Reason for Consult: chest pain, NSTEMI Call Completed: Yes 03/24/18 11:37 Consult to Cardiac Rehabilitation-Phase1 [CONS] Routine Comment: Reason for Consult: NSTEMI Call Completed: Yes 03/24/18 17:09 Consult to Cardiac Rehabilitation-Phase1 [CONS] Routine Comment: Reason for Consult: AMI Call Completed: Yes Consult to Nurse Navigator [CONS] Routine Comment: Discharging clinician: Martita Engle - Constitutional Vitals: Temp Pulse Resp BP Pulse Ox 98.1 F 70 18 148/96 92 03/25/18 11:31 03/25/18 11:31 03/25/18 11:31 03/25/18 11:31 03/25/18 11:31 General appearance: Present: A&O X 3, no acute distress Exam: Constitutional: Vitals as noted. Conversant. No Apparent Distress. Well groomed. Obese. No obvious deformities. Respiratory exam: Clear to auscultation bilaterally. No accessory muscle use, rales, rhonchi or wheezes Cardiovascular exam: RRR, +S1, +S2. no murmur, gallop, rubs. No chest wall tenderness. Midline scar noted. GI/Abdominal exam: Soft, Obese, Non-tender, Non-distended, normal bowel sounds , soft, no peritoneal signs. no orgenomegaly or mass appreciated. no hernia. Musculoskeletal exam: full ROM, no atrophy or deformity noted. no edema or cyanosis, warm, pulses palpable and symmetrical in UE/LE. no calf tenderness. Neurological exam: AO X3, CN II-XII grossly intact, grossly normal motor and sensory exam in all extremities. Skin exam: scabbed lesions noted on patients Rt leg and some on arms which patient said he got from his dog. No associated erythema or pain. Rt belle dressing in place with some echymosis. No pain. - Patient Status Disposition: Home, Self-Care Condition: Good - Discharge Instructions Follow Up With: Christopher Shirley MD [Primary Care Provider] - - Diet and Activity Activity: return to work once cleared by your PCP/specialist
--- NOTE | 2018-03-29 15:41 | Electrocardiograph Report ---
[place] [id number] Test Date: 2018-03-25 Pat Name: Art Salgado Department: 110 Room: 2N06 Gender: M Shop Service Technician: EMMIE : [id number] Requested By: Panchito Ward Order Number: [id number] Reading MD: Jony Ball Measurements Intervals [place] Rate: 64 P: 29 CT: 175 QRS: 175 QRSD: 165 T: 40 QT: 471 QTc: 480 Interpretive Statements SINUS RHYTHM INDETERMINATE AXIS RIGHT BUNDLE BRANCH BLOCK POSSIBLE LEFT POSTERIOR FASCICULAR BLOCK Electronically Signed On 03-29-2018 15:39:48 EDT by Jony Ball
== END 2018-03-25 15:50 | disposition home or self-care (01) | DRG 251 ==
LOC: SUATTDRO 16:43 → 2NENU 16:43 → 2NNU 03-24 16:51
PROVIDERS: ADMIT Internal Medicine; ATTEND Internal Medicine